=== PATIENT | female | born 1945 | race Caucasian/White ===

== ENCOUNTER 2023-07-22 12:45 | Day surgery (SDC) | payer OTHER ==
[~2023-07-22] VITALS: Ht 165.1 cm; Wt 62.1 kg
[~2023-07-22 12:45] MED LIST: NS 500 ML IV ONE; Triamcinolone Inj Susp 40 MG / ML 1ML Vial ONE
[2023-07-22] MEDS ORDERED: FAMO20 (13:19)
[2023-07-22] MEDS ORDERED: MAGNESIUM (13:21)
[2023-07-22] MEDS ORDERED: VITAMIN D (13:21)
[2023-07-22] MEDS ORDERED: VIT B (13:21)
[2023-07-22] MEDS ORDERED: VITAMIN C (13:21)
--- NOTE | 2023-07-22 13:23 | NUR ---
07/22/23 1323 Denia Triana AT 1320 PLEDGET AT 1322
[2023-07-22] MEDS ORDERED: NS 500 ML IV ONE (13:26)
[2023-07-22] MEDS ORDERED: FentaNYL Citrate 50 MCG/ML 2 ML Injection ONE (13:38)
[2023-07-22] MEDS ORDERED: Midazolam HCl 1MG / ML 2ML Vial ONE (13:38)
[2023-07-22] MEDS ORDERED: Balanced Salt Epinephrine Irrigation Solution 500 mL IR ONE (14:18)
[2023-07-22] MEDS ORDERED: Moxifloxacin HCL 0.5 MG/0.1 ML 0.4MLSYR XX ONE (14:18)
[2023-07-22] MEDS ORDERED: Lidocaine HCl/Pf 1% 5 ML VIAL XX ONE (14:18)
[2023-07-22 14:35] VITALS: BP 114/63
== END 2023-07-22 14:53 | disposition home or self-care (01) ==
LOC: ORSCSDS 12:45
PROVIDERS: Ophthalmology
PROC: 08RJ3JZ Replacement of Right Lens with Synthetic Substitute, Percutaneous Approach (ICD-10-PCS; principal; 2023-07-22 14:00)
DX: H25.811 Combined forms of age-related cataract, right eye (principal); K21.9 Gastro-esophageal reflux disease without esophagitis; Z79.899 Other long term (current) drug therapy
CPT/HCPCS: J2001; J2250; J3010; J3301; J7040; V2632

== ENCOUNTER 2023-07-28 12:22 | Day surgery (SDC) | payer OTHER ==
[~2023-07-28] VITALS: Ht 165.1 cm; Wt 62.5 kg
[~2023-07-28 12:22] MED LIST changes: +Balanced Salt Epinephrine Irrigation Solution 500 mL IR SCH; +FAMO20; +Lidocaine HCl/Pf 1% 5 ML VIAL XX SCH; +MAGNESIUM; +Moxifloxacin HCL 0.5 MG/0.1 ML 0.4MLSYR LEFTEYE SCH; +PHENYLEPHRINE\\TROPICAMIDE\\TETRACAINE OPHTHALMIC DILATING SOLN LEFTEYE PRN; +Povidone-Iodine 450 DROP/30 ML Solution LEFTEYE SCH; +Triamcinolone Inj Susp 40 MG / ML 1ML Vial INJ SCH; +VIT B; +VITAMIN C; +VITAMIN D
[2023-07-28] MEDS ORDERED: NS 500 ML IV ONE (13:14)
--- NOTE | 2023-07-28 13:14 | NUR ---
07/28/23 1314 Denia Triana AT 1305 PLEDGET AT 1306
[2023-07-28] MEDS ORDERED: Midazolam HCl 1MG / ML 2ML Vial ONE (13:57)
[2023-07-28 14:35] VITALS: BP 116/59
== END 2023-07-28 14:45 | disposition home or self-care (01) ==
LOC: ORSCSDS 12:22
PROVIDERS: Ophthalmology
PROC: 08RK3JZ Replacement of Left Lens with Synthetic Substitute, Percutaneous Approach (ICD-10-PCS; principal; 2023-07-28 13:30)
DX: H25.812 Combined forms of age-related cataract, left eye (principal); Z96.1 Presence of intraocular lens; K21.9 Gastro-esophageal reflux disease without esophagitis; Z79.899 Other long term (current) drug therapy
CPT/HCPCS: J2250; J3301; J7040; V2632